=== PATIENT | female | born 1955 | race Caucasian/White ===

== ENCOUNTER → 2017-11-10 | Outpatient (CLI) | payer BC ==
[~2017-11-10] VITALS: Ht 166.4 cm; Wt 115.6 kg
[~2017-11-10] MED LIST: ALIGN4 MG PO; ASPIRIN EC325 MG PO; ASPIRIN81 M2 PO; BASAGLAR K100 UNIT/1 SC; BENEFIBER236 GM PO; CYMBALTA60 MG PO; Cymbalta PO; Diabeta,Micronase PO; Ecotrin PO; FARXIGA5 MG PO; FERROUS SULFAT325 MG PO; Feosol PO; HYDROCHLOROTHIA25 MG PO; HYDROCODON-ACE1 EAC7 PO; Hydrodiuril,Oretic,E PO; LANTUS 3 M100 UNITS1 SC; LIPITOR80 MG PO; LO-DOSE ASPIRIN81 M1 PO; LOTREL 10/41 CAPSULE PO; LOTREL PO; Lipitor PO; METFORMIN HCL500 M1 PO; NEXIUM20 MG PO; NOVOLOG PE100 UNITS/ SC; Percocet 5/325,Endoc PO; SENNA PLUS TAB1 EACH PO; Senokot S,Pericolace PO; Wellbutrin PO; XANAX0.5 MG PO; Xanax PO; ZOLOFT100 MG PO; ZYRTEC10 M2 PO; celeBREX PO
[2017-11-10 10:55] LABS: CHLORIDE 97 MEQ/L (99-109); CREATININE 0.8 MG/DL (0.6-1.3); GFR ESTIMATE (CALCULATED) > 59 mL/min/; GLUCOSE 190 mg/dL (70-99); POTASSIUM 3.4 MEQ/L (3.7-5.4); SODIUM 138 MEQ/L (136-147); UREA NITROGEN (BUN) 9 mg/dL (9-23)
== END | disposition home or self-care (01) ==
LOC: AMB 09:33
PROVIDERS: Anesthesiology; Internal Medicine
DX: Z12.11 Encounter for screening for malignant neoplasm of colon (principal); R12 Heartburn; K66.0 Peritoneal adhesions (postprocedural) (postinfection); K64.8 Other hemorrhoids; Z53.09 Procedure and treatment not carried out because of other contraindication; K21.9 Gastro-esophageal reflux disease without esophagitis; I25.10 Atherosclerotic heart disease of native coronary artery without angina pectoris; E11.42 Type 2 diabetes mellitus with diabetic polyneuropathy; Z79.4 Long term (current) use of insulin; R74.8 Abnormal levels of other serum enzymes; E78.5 Hyperlipidemia, unspecified; I10 Essential (primary) hypertension; G47.33 Obstructive sleep apnea (adult) (pediatric); E66.9 Obesity, unspecified; Z68.41 Body mass index [BMI] 40.0-44.9, adult; Z96.652 Presence of left artificial knee joint; Z87.891 Personal history of nicotine dependence; Z79.82 Long term (current) use of aspirin; Z80.0 Family history of malignant neoplasm of digestive organs; Z80.8 Family history of malignant neoplasm of other organs or systems; Z83.3 Family history of diabetes mellitus; Z83.49 Family history of other endocrine, nutritional and metabolic diseases
CPT/HCPCS: 80048; 82948; 93005; J7643